=== PATIENT | male | born 1985 | race Hispanic/Latino ===

== ENCOUNTER 2020-06-08 01:35 | Emergency (ER) | payer OTHER, SELFPAY ==
[2020-06-08] MEDS ORDERED: HYDROXYZINE 25 MG TABLET ONE (01:58)
== END 2020-06-08 02:18 | disposition home or self-care (01) ==
LOC: EDH 01:35
DX: U07.1 COVID-19 (principal); F41.1 Generalized anxiety disorder; I10 Essential (primary) hypertension